=== PATIENT | female | born 1960 | race Two or more races ===

== ENCOUNTER → 2023-02-07 | Outpatient (CLI) | payer OTHER ==
[2023-02-07 15:42] LABS: HEMATOCRIT 42.9 % (36.0-47.0); HEMOGLOBIN 13.8 g/dl (12.0-15.5); MEAN CORPUSCULAR HEMOGLOBIN 28.9 pg (27.0-33.0); MEAN CORPUSCULAR HGB CONC 32.2 g/dl (32.0-36.5); MEAN CORPUSCULAR VOLUME 89.7 fl (80.0-96.0); PLATELET COUNT, AUTOMATED 328 10^3/uL (150-450); RED BLOOD COUNT 4.78 10^6/uL (4.00-5.40); WHITE BLOOD COUNT 9.3 10^3/uL (4.0-10.0)
[2023-02-07 15:56] LABS: HEMOGLOBIN A1c 5.6 % (4.0-6.0)
[2023-02-07 16:15] LABS: ALBUMIN 3.7 G/DL (3.2-5.2); ALKALINE PHOSPHATASE 77 U/L (46-116); ALT/SGPT 17 U/L (7.0-40); AST/SGOT 15 U/L (<34); BILIRUBIN,TOTAL 0.3 MG/DL (0.3-1.2); BLOOD UREA NITROGEN 13 MG/DL (9-23); CALCIUM LEVEL 9.2 MG/DL (8.3-10.6); CARBON DIOXIDE LEVEL 33 MMOL/L (20-31); CHLORIDE LEVEL 104 MMOL/L (98-107); GLOMERULAR FILTRATION RATE > 60.0 (>45); GLUCOSE, FASTING 85 MG/DL (74-106); POTASSIUM SERUM 3.6 MMOL/L (3.5-5.1); SODIUM LEVEL 143 MMOL/L (136-145); TOTAL PROTEIN 7.3 G/DL (5.7-8.2)
[2023-02-07 17:44] LABS: SICKLE CELL SCREEN NEGATIVE (NEGATIVE)
== END ==
LOC: M LAB 15:06
PROVIDERS: ATTEND Surgery
DX: I87.311 Chronic venous hypertension (idiopathic) with ulcer of right lower extremity (principal)

== ENCOUNTER → 2023-02-27 | Outpatient (CLI) | payer OTHER ==
[2023-02-27 19:33] LABS: BASO % 0.3 % (0.0-1.0); EOS # 0.2 10^3/uL (0.0-0.5); EOS % 2.6 % (0.0-3.0); HEMATOCRIT 43.5 % (36.0-47.0); HEMOGLOBIN 13.8 g/dl (12.0-15.5); LYMPH # 3.5 10^3/uL (1.5-5.0); LYMPH % 46.6 % (24.0-44.0); MEAN CORPUSCULAR HEMOGLOBIN 28.6 pg (27.0-33.0); MEAN CORPUSCULAR HGB CONC 31.7 g/dl (32.0-36.5); MEAN CORPUSCULAR VOLUME 90.2 fl (80.0-96.0); MONO % 12.8 % (2.0-8.0); NEUTROPHILS # 2.9 10^3/uL (1.5-8.5); NEUTROPHILS % 37.6 % (36.0-66.0); PLATELET COUNT, AUTOMATED 328 10^3/uL (150-450); RED BLOOD COUNT 4.82 10^6/uL (4.00-5.40); WHITE BLOOD COUNT 7.6 10^3/uL (4.0-10.0)
[2023-02-27 19:59] LABS: ERYTHROCYTE SEDIMENTATION RATE 42 mm/hr (0-30)
[2023-02-27 20:18] LABS: URIC ACID 8.8 MG/DL (3.1-7.8)
[2023-02-27 20:20] LABS: LDH LACTATE DEHYDROGENASE 257 U/L (120-246)
[2023-02-27 20:22] LABS: ALBUMIN 3.7 G/DL (3.2-5.2); ALKALINE PHOSPHATASE 73 U/L (46-116); ALT/SGPT 14 U/L (7.0-40); AST/SGOT 9 U/L (<34); BILIRUBIN,TOTAL 0.5 MG/DL (0.3-1.2); BLOOD UREA NITROGEN 12 MG/DL (9-23); CARBON DIOXIDE LEVEL 32 MMOL/L (20-31); CHLORIDE LEVEL 102 MMOL/L (98-107); CHOLESTEROL LEVEL 177 MG/DL (<200); CPK CREATINE PHOSPHOKINASE 118 U/L (34-145); CREATININE FOR GFR 0.87 MG/DL (0.55-1.30); GLOMERULAR FILTRATION RATE > 60.0 (>45); GLUCOSE, FASTING 70 MG/DL (74-106); PHOSPHORUS LEVEL 3.5 MG/DL (2.4-5.1); POTASSIUM SERUM 3.6 MMOL/L (3.5-5.1); SODIUM LEVEL 141 MMOL/L (136-145); TOTAL PROTEIN 7.6 G/DL (5.7-8.2); TRIGLYCERIDES LEVEL 166 MG/DL (<150)
[2023-02-27 20:23] LABS: VITAMIN B12 LEVEL 570 PG/ML (211-911)
[2023-02-27 20:24] LABS: FOLATE 8.7 NG/ML (>5.4)
[2023-02-27 20:47] LABS: RHEUMATOID FACTOR QUANT 155.4 IU/ML (<14)
== END ==
LOC: M LAB 13:45
PROVIDERS: ATTEND Physician Assistant
DX: H47.092 Other disorders of optic nerve, not elsewhere classified, left eye (principal)

== ENCOUNTER → 2023-02-27 | Outpatient (CLI) | payer OTHER | LOC: M RAD 13:39 | PROVIDERS: ATTEND Physician Assistant | DX: L97.512 Non-pressure chronic ulcer of other part of right foot with fat layer exposed (principal) ==

== ENCOUNTER → 2023-04-04 | Outpatient (CLI) | payer OTHER | LOC: M RAD 11:55 | PROVIDERS: ATTEND Physician Assistant | DX: H47.292 Other optic atrophy, left eye (principal) ==

== ENCOUNTER → 2023-04-15 | Outpatient (CLI) | payer OTHER ==
[2023-04-15 12:13] LABS: BLOOD UREA NITROGEN 14 MG/DL (9-23); CREATININE FOR GFR 0.74 MG/DL (0.55-1.30); GLOMERULAR FILTRATION RATE > 60.0 (>45)
== END ==
LOC: M LAB 10:58
PROVIDERS: ATTEND Physician Assistant
DX: H47.292 Other optic atrophy, left eye (principal)

== ENCOUNTER → 2023-04-17 | Outpatient (CLI) | payer OTHER ==
[~2023-04-17] MED LIST: PROHANCE 279.3MG/ML 15ML VIAL ONE; PROHANCE 279.3MG/ML 5ML VIAL ONE
== END ==
LOC: M PLAIMG 07:46
PROVIDERS: ATTEND Physician Assistant
DX: H47.292 Other optic atrophy, left eye (principal); R94.02 Abnormal brain scan; R93.0 Abnormal findings on diagnostic imaging of skull and head, not elsewhere classified
CPT/HCPCS: 70543; 70553; A9576

== ENCOUNTER 2023-07-31 10:13 | Day surgery (SDC) | payer OTHER ==
[~2023-07-31] VITALS: Ht 175.3 cm; Wt 150.6 kg
[~2023-07-31 10:13] MED LIST changes: +ALLO100T PO; +BRIM2OPD OU; +BSS IRRIG/VANCO(10MG)/TOBRA(5MG)/EPINEPH(1:1000-0.5CC)500ML BAG-ORONLY IR ONE; +CARV12.5 PO; +CEFUROXIME 1MG/0.1ML INTRACAMERAL INJ As Ordered ONE; +CHLO125TA PO; +CYCLOPENTOLATE 1% OPHTH SOLN 2ML BTL OS SCH; +INDA1.253 PO; +LIDOCAINE 1% SDV 5ML VIAL As Ordered ONE; +LIDOCAINE 3.5 % 1ML OPHTH TOPICAL GEL OU ONE; +OFLOXACIN 0.3 % (OCUFLOX) OPTH SOL 5ML OS ONE; +OLME40TA PO; +PHENYLEPHRINE 10% OPHTH SOL 5ML OS PRN; +PHENYLEPHRINE 2.5% OPHTH SOL 2ML OS SCH; +PRED5TA PO; -PROHANCE 279.3MG/ML 15ML VIAL ONE; -PROHANCE 279.3MG/ML 5ML VIAL ONE; +TROPICAMIDE 1% OPHTH SOLN 15ML OS SCH
[2023-07-31] MEDS ORDERED: MIDAZOLAM INJ 2MG/2ML VIAL As Ordered ONE (12:31)
[2023-07-31] MEDS ORDERED: fentaNYL 100 MCG/2 ML INJECTION As Ordered ONE (12:31)
[2023-07-31] MEDS ORDERED: mitoMYcin 0.2 MG/VIAL KIT FOR OPHTHALMIC USE As Ordered ONE ×2 (12:43→14:19)
[2023-07-31] MEDS ORDERED: LIDOCAINE 2% W/EPINEPHRINE 20ML VIAL **PRES FREE As Ordered ONE (12:46)
[2023-07-31 15:19] VITALS: BP 182/86; TEMP 97.3; O2SAT 98
== END 2023-07-31 16:00 | disposition home or self-care (01) ==
LOC: M SDC 10:13
PROVIDERS: ATTEND Ophthalmology
DX: H40.9 Unspecified glaucoma (principal); G47.30 Sleep apnea, unspecified; I10 Essential (primary) hypertension; Z79.899 Other long term (current) drug therapy
CPT/HCPCS: 66030; 66183; C1783; J0697; J2250; J3010; J7315

== ENCOUNTER → 2024-09-11 | Outpatient (CLI) | payer OTHER, MEDICAID ==
[~2024-09-11] MED LIST changes: +AMLO1TAB24 PO; -BSS IRRIG/VANCO(10MG)/TOBRA(5MG)/EPINEPH(1:1000-0.5CC)500ML BAG-ORONLY IR ONE; +CARV25TA PO; -CEFUROXIME 1MG/0.1ML INTRACAMERAL INJ As Ordered ONE; -CYCLOPENTOLATE 1% OPHTH SOLN 2ML BTL OS SCH; +DORZ2SOL5 OD; -LIDOCAINE 1% SDV 5ML VIAL As Ordered ONE; -LIDOCAINE 3.5 % 1ML OPHTH TOPICAL GEL OU ONE; -OFLOXACIN 0.3 % (OCUFLOX) OPTH SOL 5ML OS ONE; -PHENYLEPHRINE 10% OPHTH SOL 5ML OS PRN; -PHENYLEPHRINE 2.5% OPHTH SOL 2ML OS SCH; +SPIR50TA4 PO; -TROPICAMIDE 1% OPHTH SOLN 15ML OS SCH; +XALA0.007 OU
== END ==
LOC: M SLEEP 20:00
PROVIDERS: ATTEND Nurse Practitioner Adult Health
DX: G47.33 Obstructive sleep apnea (adult) (pediatric) (principal)

== ENCOUNTER 2024-11-18 10:19 | Day surgery (SDC) | payer MEDICAID, OTHER ==
[~2024-11-18] VITALS: Ht 165.1 cm; Wt 159.9 kg
[~2024-11-18 10:19] MED LIST changes: +GABA-1171 PO
[2024-11-18] MEDS ORDERED: LR 1,000 ML IV SCH (11:45)
[2024-11-18] MEDS ORDERED: MIDAZOLAM INJ 2MG/2ML VIAL As Ordered ONE (12:09)
[2024-11-18] MEDS ORDERED: fentaNYL 100 MCG/2 ML INJECTION As Ordered ONE (12:09)
[2024-11-18] MEDS: LIDOCAINE 3.5 % 1ML OPHTH TOPICAL GEL OU ONE (13:40)
[2024-11-18] MEDS: TOBRADEX OPHTH SUSP 2.5 ML As Ordered ONE (14:22)
[2024-11-18] MEDS: mitoMYcin 0.2 MG/VIAL KIT FOR OPHTHALMIC USE As Ordered ONE (14:29)
[2024-11-18] MEDS: LIDOCAINE 2% W/EPINEPHRINE 20ML VIAL **PRES FREE As Ordered ONE (14:30)
[2024-11-18] MEDS: TOBRADEX OPHTH OINT 3.5 GM As Ordered ONE (14:40)
[2024-11-18] MEDS: TOBRAMYCIN 80MG/2ML VIAL As Ordered ONE (14:46)
[2024-11-18] MEDS: BETAMETHASONE SOLUSPAN 6MG/ML 5ML VIAL As Ordered ONE (14:46)
[2024-11-18 14:54] VITALS: BP 124/57; TEMP 97.4; O2SAT 98
== END 2024-11-18 15:35 | disposition home or self-care (01) ==
LOC: M SDC 10:19
PROVIDERS: ATTEND Ophthalmology
DX: H40.1121 Primary open-angle glaucoma, left eye, mild stage (principal); I10 Essential (primary) hypertension; G47.30 Sleep apnea, unspecified; M10.9 Gout, unspecified; Z79.899 Other long term (current) drug therapy; Z98.42 Cataract extraction status, left eye
CPT/HCPCS: 66184; J2250; J3010; J7315

== ENCOUNTER → 2025-04-06 | Outpatient (REF) | payer OTHER | LOC: M SFHCWOUN 17:33 | PROVIDERS: ATTEND Physician Assistant | DX: L97.312 Non-pressure chronic ulcer of right ankle with fat layer exposed (principal) ==

== ENCOUNTER → 2025-04-16 | Outpatient (CLI) | payer OTHER | LOC: M RAD 13:04 | PROVIDERS: ATTEND Physician Assistant | DX: L97.312 Non-pressure chronic ulcer of right ankle with fat layer exposed (principal) ==

== ENCOUNTER → 2025-05-20 | Outpatient (REF) | payer OTHER | LOC: M LAB REF 12:26 | PROVIDERS: ATTEND Physician Assistant | DX: L97.312 Non-pressure chronic ulcer of right ankle with fat layer exposed (principal) ==